=== PATIENT | female | born 1980 | race Caucasian/White ===

== ENCOUNTER → 2017-05-31 | Outpatient (CLI) | payer OTHER ==
[2017-05-31 17:23] LABS: Influenza A Positive (NEGATIVE)
[2017-05-31 17:24] LABS: Influenza B Negative (NEGATIVE)
== END ==
LOC: LAB SHORT 15:20
PROVIDERS: Family Medicine
DX: R50.9 Fever, unspecified (principal)
CPT/HCPCS: 87804

== ENCOUNTER → 2019-06-18 | Outpatient (CLI) | payer OTHER ==
[2019-06-20 15:11] LABS: HPV 16 Negative (Negative); HPV 18 Negative (Negative); HPV OTHER HR TYPES Negative (Negative)
== END | disposition home or self-care (01) ==
LOC: LAB 09:10 → LAB SHORT 09:10
PROVIDERS: Advanced Practice Midwife
DX: Z01.419 Encounter for gynecological examination (general) (routine) without abnormal findings (principal)
CPT/HCPCS: 87624; G0123

== ENCOUNTER → 2019-07-03 | Outpatient (CLI) | payer OTHER ==
[2019-07-04 07:48] LABS: Candida species (DNA Probe) Negative (NEGATIVE); G. vaginalis (DNA Probe) Negative (NEGATIVE); T. vaginalis (DNA Probe) Negative (NEGATIVE)
== END ==
LOC: LAB 16:37 → LAB SHORT 16:37
PROVIDERS: Advanced Practice Midwife
DX: N76.0 Acute vaginitis (principal)
CPT/HCPCS: 87480; 87510; 87660

== ENCOUNTER → 2020-01-17 | Outpatient (CLI) | payer OTHER ==
[2020-01-17 13:42] LABS: Hematocrit 39.8 % (33.0-51.0); Hemoglobin 11.9 g/dL (11.5-16.0); Mean Corpuscular HGB 23.4 pg (26.0-34.0); Mean Corpuscular HGB Conc 29.9 g/dL (31.5-36.5); Mean Corpuscular Volume 78 fL (80-100); Mean Platelet Volume 9.8 fL (9.1-12.4); Platelet Count 479 K/mm3 (150-400); RDW Standard Deviation 53.2 fL (35.1-46.3); Red Blood Cell Count 5.09 M/mm3 (3.80-5.20); White Blood Cell Count 7.71 K/mm3 (4.00-11.30)
[2020-01-17 14:03] LABS: Percent Saturation 8.5 % (15.0-50.0)
== END ==
LOC: LAB SHORT 08:10 → LAB 08:10
PROVIDERS: Nurse Practitioner Family
DX: D50.9 Iron deficiency anemia, unspecified (principal)
CPT/HCPCS: 82728; 83540; 83550; 85027

== ENCOUNTER 2020-06-11 10:49 | Day surgery (SDC) | payer OTHER ==
[~2020-06-11] VITALS: Ht 170.2 cm; Wt 115.5 kg
[2020-06-11] MEDS ORDERED: SERT50 (11:31)
--- NOTE | 2020-06-11 12:28 | NUR ---
06/11/20 1228 Fabrice Oshea BUPIVACAINE 0.5% 30MLS MIXED WITH EPI 0.15MLS TO MAKE A CONCENTRATION OF BUPIVACAINE 0.5% 1:200,000 FOR INJECTION AT OPSITE BY DR. MARTÍNEZ PER ORDER. 10 MLS OF BUPIVACAINE 0.5% 1:200,[address] CASIANO[address]
== END 2020-06-11 14:05 | disposition home or self-care (01) ==
LOC: ORSCSDS 10:49
PROVIDERS: Obstetrics & Gynecology
PROC: 0UB74ZZ Excision of Bilateral Fallopian Tubes, Percutaneous Endoscopic Approach (ICD-10-PCS; principal; 2020-06-11 12:00)
DX: Z30.2 Encounter for sterilization (principal)
CPT/HCPCS: 88302; A9270; C1729; J0171; J1100; J1885; J2250; J2405; J2704; J2710; J3010; J7120

== ENCOUNTER 2020-12-11 14:05 | Emergency (ER) | payer OTHER ==
[~2020-12-11] VITALS: Ht 170.2 cm; Wt 108.9 kg
[~2020-12-11 14:05] MED LIST: SERT50
[2020-12-11 15:45] LABS: BASOPHILS ABSOLUTE AUTO 0.05 K/mm3 (0.00-0.23); BASOPHILS PERCENT AUTO 0 % (0-2); EOSINOPHILS PERCENT AUTO 0 % (0-6); Hematocrit 36.5 % (33.0-51.0); Hemoglobin 11.3 g/dL (11.5-16.0); IMMATURE GRAN ABSOLUTE AUTO 0.04 K/mm3 (0.00-0.10); IMMATURE GRAN PERCENT AUTO 0 % (0-1); LYMPHOCYTES ABSOLUTE AUTO 0.94 K/mm3 (0.84-5.20); LYMPHOCYTES PERCENT AUTO 7 % (21-46); MONOCYTES ABSOLUTE AUTO 0.36 K/mm3 (0.16-1.47); MONOCYTES PERCENT AUTO 3 % (4-13); Mean Corpuscular Volume 74 fL (80-100); Mean Platelet Volume 9.4 fL (9.1-12.4); NEUTROPHILS ABSOLUTE AUTO 11.29 K/mm3 (1.96-9.15); NEUTROPHILS PERCENT AUTO 89 % (41-73); Platelet Count 495 K/mm3 (150-400); RDW Coefficient Variation 17.7 % (11.7-14.2); Red Blood Cell Count 4.92 M/mm3 (3.80-5.20); White Blood Cell Count 12.68 K/mm3 (4.00-11.30)
[2020-12-11 16:01] LABS: SARS-Cov-2 (COVID-19) PCR, MMC NEGATIVE (NEGATIVE)
[2020-12-11 16:06] LABS: Alanine Aminotransfer (ALT/SGP 30 U/L (12-78); Albumin, Blood 3.5 g/dL (3.4-5.0); Albumin/Globulin Ratio 0.7 (0.8-1.8); Alk Phos 67 U/L (50-136); Anion Gap 12 mmol/L (6-16); Aspartate Aminotrans (AST/SGOT 18 U/L (12-37); Bilirubin, Total 0.4 mg/dL (0.1-1.0); Blood Urea Nitrogen 10 mg/dL (8-24); Bun/Creatinine Ratio 14.8 (12.0-20.0); CO2, Blood 18 mmol/L (21-32); Chloride, Blood 106 mmol/L (98-108); Creatinine, Blood 0.68 mg/dL (0.40-1.00); Globulin, Blood 5.1 g/dL (2.2-4.0); Glomerular Filtration Rate >60 (60-); Glucose, Blood 126 mg/dL (70-99); Potassium, Blood 3.6 mmol/L (3.5-5.5); Sodium, Blood 136 mmol/L (136-145); Total Protein, Blood 8.6 g/dL (6.4-8.2)
[2020-12-11 17:20] LABS: Source, Urine Clean Catch
[2020-12-11 17:27] LABS: Appearance, Urine Clear (Clear); Bilirubin, Urine Neg (Neg); Blood, Urine Neg (Neg); Color, Urine Yellow (P-Yellow); Glucose Qualitative, Urine Neg (Neg); Ketones, Urine 4+ (Neg); Leukocyte Esterase, Urine Neg (Neg); Nitrite, Urine Neg (Neg); Protein, Urine Neg (Neg); Urobilinogen, Urine NORM (Normal)
[2020-12-11] MEDS ORDERED: Norco 5-325 Ta1 EACH PO (18:50)
[2020-12-11] MEDS ORDERED: ONDA4 PO (18:50)
== END 2020-12-11 19:35 | disposition home or self-care (01) ==
LOC: ER 14:05
PROVIDERS: Physician Assistant
DX: N83.02 Follicular cyst of left ovary (principal); D64.9 Anemia, unspecified; Z88.2 Allergy status to sulfonamides; Z87.891 Personal history of nicotine dependence; Z20.822 Contact with and (suspected) exposure to COVID-19
CPT/HCPCS: 36415; 74177; 80053; 81003; 83690; 85025; 96361; 96374-59; 96375; 99284-25; A9270; J2405; J2550; J7030; Q9967; U0004

== ENCOUNTER → 2021-07-09 | Outpatient (CLI) | payer OTHER ==
[~2021-07-09] MED LIST changes: +Norco 5-325 Ta1 EACH PO; +ONDA4 PO
[2021-07-09 10:58] LABS: Anion Gap 7 mmol/L (6-16); Blood Urea Nitrogen 13 mg/dL (8-24); Bun/Creatinine Ratio 17.2 (12.0-20.0); CHOL/HDL RATIO 2.5; CO2, Blood 24 mmol/L (21-32); Calcium, Blood 8.4 mg/dL (8.5-10.1); Chloride, Blood 107 mmol/L (98-108); Cholesterol 163 mg/dL (50-200); Creatinine, Blood 0.76 mg/dL (0.40-1.00); Glomerular Filtration Rate >60 (60-); Glucose, Blood 101 mg/dL (70-99); HDL Cholesterol 65 mg/dL (>39); LDL/HDL RATIO 1.4; Low Density Lipoprotein Chol 88 mg/dL (0-110); Potassium, Blood 4.3 mmol/L (3.5-5.5); Sodium, Blood 138 mmol/L (136-145); Triglycerides 51 mg/dL (30-160); Very Low Density Lipoprot Chol 10 mg/dL (6-32)
== END ==
LOC: LAB SHORT 09:07 → LAB 09:07
PROVIDERS: Nurse Practitioner Family
DX: Z13.220 Encounter for screening for lipoid disorders (principal); Z13.1 Encounter for screening for diabetes mellitus; F32.9 Major depressive disorder, single episode, unspecified; F41.9 Anxiety disorder, unspecified; R53.83 Other fatigue; E55.9 Vitamin D deficiency, unspecified
CPT/HCPCS: 80048; 80061; 82306; 84443

== ENCOUNTER → 2021-10-28 | Outpatient (CLI) | payer OTHER ==
[2021-10-28 13:31] LABS: Percent Saturation 10.7 % (15.0-50.0)
== END ==
LOC: LAB SHORT 08:30 → LAB 08:30 → EDSTATUS 10-11 11:05 → LAB FUT 10-11 11:05
PROVIDERS: Nurse Practitioner Family
DX: E55.9 Vitamin D deficiency, unspecified (principal); E87.6 Hypokalemia; E61.1 Iron deficiency
CPT/HCPCS: 82306; 82310; 82728; 83540; 83550

== ENCOUNTER → 2022-11-29 | Outpatient (CLI) | payer OTHER ==
[2022-11-30 16:09] LABS: HPV 16 Negative (Negative); HPV 18 Negative (Negative); HPV OTHER HR TYPES Negative (Negative)
== END | disposition home or self-care (01) ==
LOC: LAB 10:13 → LAB SHORT 10:13
PROVIDERS: Obstetrics & Gynecology
DX: Z01.419 Encounter for gynecological examination (general) (routine) without abnormal findings (principal)
CPT/HCPCS: 87624; G0145